=== PATIENT | male | born 1960 | race Caucasian/White ===

== ENCOUNTER 2018-01-09 14:48 | Emergency (ER) | payer BC, OTHER ==
[~2018-01-09] VITALS: Ht 188 cm; Wt 118.0 kg
[2018-01-09] MEDS ORDERED: MoRPHine SULFATE 4 MG/ML 1 ML CARP\\VIAL IV STA (14:57)
[2018-01-09] MEDS ORDERED: ONDANSETRON INJ 2 MG/ML 2 ML VIAL IV STA (14:57)
[2018-01-09 14:59] VITALS: Ht 188 cm; Wt 118.0 kg
[2018-01-09] MEDS ORDERED: SODIUM CHLORIDE 0.9% 1000ML 1,000 ML IV ONE (15:00)
[2018-01-09] MEDS ORDERED: CEFTRIAXONE SOD INJ 1 GM ADDVIAL IV STA (15:02)
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
[2018-01-09] MEDS ORDERED: DIPHTHERIA/TETANUS/PERTUSSIS 0.5 ML SYR/VIAL IM. ONE (15:15)
[2018-01-09 15:18] LABS: BASO % 0.5 %; BASO ABS # 0.04 K/uL (0-0.2); EOS % 5.2 %; EOS ABS # 0.46 K/uL (0-0.5); HEMATOCRIT 44.6 % (42-52); HEMOGLOBIN 15.9 g/dL (14.0-18.0); IG# 0.02 K/uL (0.00-0.02); LYMPH ABS # 4.03 K/uL (1.2-3.4); MEAN CELL VOLUME 87.5 fL (80-100); MEAN CORPUSCULAR HEMOGLOBIN 31.2 pg (25-34); MEAN CORPUSCULAR HGB CONC 35.7 g/dl (32-36); MEAN PLATELET VOLUME 10.3 fL (7.4-10.4); MONO % 8.2 %; MONO ABS # 0.72 K/uL (0.11-0.59); NEUT % 39.9 %; PLATELET COUNT 168 K/uL (130-400); RED CELL DISTRIBUTION WIDTH CV 12.9 % (11.5-14.5); RED CELL DISTRIBUTION WIDTH SD 41.3 fL (36.4-46.3); WHITE BLOOD COUNT 8.77 K/uL (4.8-10.8)
[2018-01-09] MEDS ORDERED: HYDROmorphone INJ 1 MG/ML SYR IV STA (15:23)
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
[2018-01-09] MEDS ORDERED: GLUCTAB18 PO (15:34)
[2018-01-09 15:36] LABS: CALCIUM 8.9 mg/dl (8.5-10.1); CREATININE 0.98 mg/dl (0.60-1.40); POTASSIUM 3.8 mmol/L (3.5-5.1)
[2018-01-09] MEDS ORDERED: HYDROmorphone INJ 1 MG/ML SYR IV ONE (16:45)
[2018-01-09 17:09] VITALS: BP 131/87; PULSE 80; TEMP 36.6; O2SAT 98
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
[2018-01-09] MEDS ORDERED: ONDANSETRON INJ 2 MG/ML 2 ML VIAL ONE (21:24)
== END 2018-01-09 17:10 | disposition short-term general hospital (02) ==
LOC: C.EDB 14:49 → C.EDD 17:10
DX: S62.610B Displaced fracture of proximal phalanx of right index finger, initial encounter for open fracture (principal); S62.612B Displaced fracture of proximal phalanx of right middle finger, initial encounter for open fracture; S61.401A Unspecified open wound of right hand, initial encounter; M79.5 Residual foreign body in soft tissue; W34.00XA Accidental discharge from unspecified firearms or gun, initial encounter